=== PATIENT | female | born 1940 | race Caucasian/White ===

== ENCOUNTER 2017-04-08 08:11 | Emergency (ER) | payer MEDICARE, BC ==
[2017-04-08] MEDS ORDERED: Lidocaine 1% with EPINEPHrine 1:100,000 20 ML MDV INJECT ONE (08:20)
[2017-04-08 08:36] VITALS: BP 152/72
[2017-04-08] MEDS ORDERED: Bacitracin Oint 1 GM U/D Packet TOP ONE (09:01)
[2017-04-08] MEDS ORDERED: Diphtheria,Pertussis(Acell),Tetanus Vaccine 0.5 ML SDV IM ONE (09:02)
--- NOTE | 2017-04-08 09:10 | EDM.PDOC ---
ED HPI GENERAL MEDICAL PROBLEM - General Chief Complaint: Laceration Stated Complaint: [phone] CUT HAND Time Seen by Provider: 04/08/17 08:30 Source of Information: Reports: Patient, RN - History of Present Illness INITIAL COMMENTS - FREE TEXT/NARRATIVE: She was washing dishes this morning and was holding a heavy water glass in her right hand while cleaning with her left hand when the glass broke. She sustained a laceration on the left hand the proximal radial side of the index finger. No numbness. No motor or strength problems since the laceration occurred this morning. Last tetanus vaccine uncertain and thinks was less than 10 years ago. She uses her left hand for most activities, but eats using her right hand. Retired. Left Hand Pain Score (Numeric/FACES): 5 - Related Data Allergies Allergy/AdvReac Type Severity Reaction Status Date / Time Penicillins Allergy Cannot Verified 04/08/17 08:36 Remember Home Meds: Home Meds . [Unable to Verify Home Med List] 04/08/17 [History] Past Medical History Gastrointestinal History: Reports: GERD Psychiatric History: Reports: Depression Social & Family History - Tobacco Use Smoking Status *Q: Never Smoker - Recreational Drug Use Recreational Drug Use: No ED ROS GENERAL - Review of Systems Review Of Systems: ROS reveals no pertinent complaints other than HPI. Constitutional: Reports: No Symptoms Skin: Reports: Other (laceration of left hand which happened today. No other problems.) Psychiatric: Reports: No Symptoms (No other comments.) ED EXAM, SKIN/RASH Exam: See Below Eye Exam: Bilateral Eye: Normal Inspection Head: Atraumatic Neck: Normal Inspection Peripheral Pulses: 1+: Radial (L) Extremities: Normal Range of Motion, No Pedal Edema, Normal Capillary Refill, Other (3.5 cm laceration of left hand at the radial side of the index finger proximal MCP joint and at the first dorsal web space.) ED SKIN PROCEDURES - Laceration/Wound Repair Left Hand Lac/wound length in cm: 3.5 Appearance: subcutaneous, linear, clean Distal NVT: neuro & vascular intact, other (laceration near MCP at radial side of the proximal index finger.Curving laceration throught the skin and superficial tissue. Radial digital artery intact and not exposed. 6-7 mm laceration of extensor tendon ramos without any joint capsule exposed. Good extension strength of the index finger.) Anesthetic Type: local Local anesthesia - Lidocaine (Xylocaine): 1% with epi Local anesthetic volume: 3cc Skin prep: chlorhexidine (hibiciens), sterile drape Exploration/Debridement/Repair: wound explored, in a bloodless field, explored to base, no foreign material found Closed with: sutures Suture size: other (5-0 Dermalon ( nylon )) # of sutures: 7 Suture type: nylon, interrupted, simple (only skin closure) Sterile dressing applied: nurse Tetanus status addressed: Yes Complications: No Course - Vital Signs Last Recorded V/S: Last Vital Signs Temp 96.9 F 04/08/17 08:28 Pulse 87 04/08/17 08:28 Resp 18 04/08/17 08:28 BP 152/72 H 04/08/17 08:28 Pulse Ox 98 04/08/17 08:28 - Orders/Labs/Meds Orders: Active Orders 24 hr Category Date Time Status Vaccines to be Administered [RC] PER UNIT ROUTINE Care 04/08/17 09:03 Ordered Diphth,Pertuss(Acell),Tet Vac [Adacel] Med 04/08/17 09:02 Once 0.5 ml IM .ONCE ONE Meds: Medications Discontinued Medications Generic Name Dose Route Start Last Admin Trade Name Freq PRN Reason Stop Dose Admin Bacitracin 1 dose 04/08/17 09:01 Bacitracin Oint 1 Gm TOP 04/08/17 09:02 ONETIME ONE Lidocaine/Epinephrine 20 ml 04/08/17 08:20 Xylocaine 1% With Epinephrine 1:100,000 INJECT 04/08/17 08:21 ONETIME ONE Departure - Departure Time of Disposition: 09:24 Disposition: Home, Self-Care 01 Condition: good Clinical Impression: Laceration of left hand involving tendon Qualifiers: Encounter type: initial encounter Qualified Code(s): S61.412A - Laceration without foreign body of left hand, initial encounter; S66.922A - Laceration of unspecified muscle, fascia and tendon at wrist and hand level, left hand, initial encounter Clinical Impression: (Ruled Out): Hand laceration involving tendon - Discharge Information Instructions: Laceration Care, Adult, [id number] Additional Instructions: Apply daily dressing for 3 days. Keep laceration clean and dry. Elevate hand as needed for pain. Tylenol as needed for pain. See your doctor on April 20 for suture removal. - My Orders Last 24 Hours: My Active Orders 04/08/17 09:02 Diphth,Pertuss(Acell),Tet Vac [Adacel] 0.5 ml IM .ONCE ONE 04/08/17 09:03 Vaccines to be Administered [RC] PER UNIT ROUTINE - Assessment/Plan Last 24 Hours: My Active Orders 04/08/17 09:02 Diphth,Pertuss(Acell),Tet Vac [Adacel] 0.5 ml IM .ONCE ONE 04/08/17 09:03 Vaccines to be Administered [RC] PER UNIT ROUTINE
== END 2017-04-08 09:28 | disposition home or self-care (01) ==
LOC: DL.ED 08:11 → MERGE 08:11 → DL.ED 09:28
DX: S61.411A Laceration without foreign body of right hand, initial encounter (principal); S66.321A Laceration of extensor muscle, fascia and tendon of left index finger at wrist and hand level, initial encounter; Z88.0 Allergy status to penicillin; K21.9 Gastro-esophageal reflux disease without esophagitis; F32.9 Major depressive disorder, single episode, unspecified; Z23 Encounter for immunization; W25.XXXA Contact with sharp glass, initial encounter
CPT/HCPCS: 12002; 90715; 99282; 99283

== ENCOUNTER 2018-07-12 06:24 | Day surgery (SDC) | payer MEDICARE, BC ==
[~2018-07-12 06:24] MED LIST: Dextrose 5%-0.45% NaCl 1,000 ML IV SCH; Midazolam 1 MG/ML 2 ML SDV ONE; Sodium Chloride 0.9% 10 ML Syringe FLUSH PRN; fentaNYL 100 MCG/2 ML SDV ONE
[2018-07-12] MEDS ORDERED: fentaNYL 100 MCG/2 ML SDV IV ONE ×3 (06:25→07:27)
[2018-07-12] MEDS ORDERED: Midazolam 1 MG/ML 2 ML SDV IV ONE ×4 (06:25→07:32)
[2018-07-12 10:06] VITALS: BP 122/55
--- NOTE | 2018-07-12 13:13 | OR ---
DATE: 07/12/2018 PROCEDURES: Total colonoscopy, cold snare polypectomy, and multiple pinch biopsies. INSTRUMENT USED: PCF-H180 AL Olympus video colonoscope. PREMEDICATIONS: Fentanyl 100 mcg intravenous, Versed 3 mg intravenous. Nasal O2 cannula. The procedure was done under pulse oximetry, BP recording, and monitor worker. INDICATION: The patient with unexplained chronic diarrhea. Colonoscopic examination is done for detection of any polypoid lesions and removal. Biopsies to be obtained for microscopic colitis. Endoscopic hemostasis therapy if needed. DESCRIPTION OF PROCEDURE: Initial rectal exam was unremarkable. Rigid anoscopy was normal. The colonoscope was passed with ease. Mild patchy erythema was noted in the rectum. The scope was passed with ease up to the ileocecal area. Photographs were taken of the cecum showing diminutive benign-appearing polyp. NBI views were obtained. Cold snare polypectomy was done. The tissue was retrieved and sent for histopathology. Ileocecal valve showed thin-lipped configuration preventing further advancement of the instrument to visualize terminal ileum. No bleeding was noted from any of the visualized areas at the commencement of the examination. The bowel preparation was found to be adequate. No stricture. No vascular ectasia. No large isolated ulcerations seen. No evidence of diffuse inflammatory bowel disease in the form of friability, contact bleeding, or ulcerations. Probing the proximal sides of folds and flexures, using adequate distention and clearing up the stool material, withdrawal of the scope was made. Photograph was taken of the rectum. Multiple pinch biopsies were taken from the normal-appearing mucosa of the mid transverse colon and mid descending colon and also from the rectum and sent for any histopathologic evidence of microscopic colitis. No bleeding was noted from any of the visualized areas at the completion of examination. IMPRESSION: Diminutive cecal polyp. The patient tolerated the procedure well. [facility] /[id number]
== END 2018-07-12 09:55 | disposition home or self-care (01) ==
LOC: DL.ENDO 06:24
PROVIDERS: ATTEND Internal Medicine Gastroenterology
DX: K52.9 Noninfective gastroenteritis and colitis, unspecified (principal); D12.0 Benign neoplasm of cecum; K62.1 Rectal polyp; F41.1 Generalized anxiety disorder; K21.9 Gastro-esophageal reflux disease without esophagitis; E66.09 Other obesity due to excess calories; Z68.27 Body mass index [BMI] 27.0-27.9, adult; Z88.0 Allergy status to penicillin; Z91.048 Other nonmedicinal substance allergy status
CPT/HCPCS: 88305; J2250; J3010; J7042; J7050

== ENCOUNTER → 2019-02-28 | Outpatient (CLI) | payer MEDICARE, BC | LOC: DL.MRI 10:31 | PROVIDERS: ATTEND Nurse Practitioner | DX: M51.16 Intervertebral disc disorders with radiculopathy, lumbar region (principal); M51.17 Intervertebral disc disorders with radiculopathy, lumbosacral region; M48.061 Spinal stenosis, lumbar region without neurogenic claudication; M46.96 Unspecified inflammatory spondylopathy, lumbar region; M46.97 Unspecified inflammatory spondylopathy, lumbosacral region | CPT/HCPCS: 72148 ==

== ENCOUNTER 2020-05-14 22:14 | Inpatient (IN) | payer MEDICARE, BC ==
--- NOTE | 2020-05-14 22:27 | EDM.PDOC ---
ED HPI GENERAL MEDICAL PROBLEM - General Stated Complaint: fell Time Seen by Provider: 05/14/20 22:30 Source of Information: Reports: Patient History Limitations: Reports: No Limitations - History of Present Illness INITIAL COMMENTS - FREE TEXT/NARRATIVE: Fall at [employer] , left foot, hax hx nerve damage and caught under neath, fell to left side, No loss of consciousness did not strike head. No neck pain. Assisted up. Initially ambulatory with cane, After home elevated and ice, later tried to walk on foot and pain worse and felt unable to bear weight. Pain left wrist with movment, Pain left "butt cheek" Denies hip pain with movement. Left Ankle Pain Score (Numeric/FACES): 7 Left Wrist Pain Score (Numeric/FACES): 7 Buttock Pain Score (Numeric/FACES): 5 - Related Data Allergies Allergy/AdvReac Type Severity Reaction Status Date / Time Penicillins Allergy Cannot Verified 05/14/20 22:40 Remember surgical tape Allergy Other Uncoded 05/14/20 22:40 Home Meds: Home Meds Cholecalciferol (Vitamin D3) [Vitamin D3] 1 tab PO DAILY 06/26/18 [History] Diphenoxylate HCl/Atropine [Diphenoxylate-Atrop 2.5-0.025] 1 each PO QID PRN 05/14/20 [History] atorvaSTATin [Lipitor] 40 mg PO BEDTIME 05/14/20 [History] Aspirin [Aspirin EC] 81 mg PO BEDTIME 05/15/20 [History] FLUoxetine HCl [Prozac] 20 mg PO DAILY 05/15/20 [History] Metoprolol Tartrate 12.5 mg PO BID 05/15/20 [History] Omeprazole 20 mg pe PO DAILY 05/15/20 [History] Ondansetron [Ondansetron Odt] 4 mg PO Q8H PRN 05/15/20 [History] Ticagrelor [Brilinta] 90 mg PO BID 05/15/20 [History] Past Medical History HEENT History: Reports: None Cardiovascular History: Reports: None Respiratory History: Reports: None Gastrointestinal History: Reports: Chronic Diarrhea, GERD, Other (See Below) Other Gastrointestinal History: fatty liver Genitourinary History: Reports: None DIRECTOR TECHNICAL History: Reports: Musculoskeletal History: Reports: Arthritis, Back Pain, Chronic Neurological History: Reports: None Psychiatric History: Reports: Anxiety, Depression Endocrine/Metabolic History: Reports: Obesity/BMI 30+ Hematologic History: Reports: Anemia Immunologic History: Reports: None Oncologic (Cancer) History: Reports: Cervix Dermatologic History: Reports: None - Infectious Disease History Infectious Disease History: Reports: Measles - Past Surgical History Head Surgeries/Procedures: Reports: None HEENT Surgical History: Reports: Cataract Surgery Cardiovascular Surgical History: Reports: None GI Surgical History: Reports: Appendectomy, Cholecystectomy, Colonoscopy, Other (See Below) Other GI Surgeries/Procedures: small bowel GIST surg Female Surgical History: Reports: Hysterectomy Musculoskeletal Surgical History: Reports: None Dermatological Surgical History: Reports: None Social & Family History - Caffeine Use Caffeine Use: Reports: Coffee Caffeine Use Comment: 16 oz daily Review of Systems - Review of Systems Review Of Systems: Comprehensive ROS is negative, except as noted in HPI. ED EXAM, GENERAL - Physical Exam Exam: See Below Exam Limited By: No Limitations General Appearance: Alert, Mild Distress, Thin Eye Exam: Bilateral Eye: EOMI, PERRL Ears: Normal External Exam, Hearing Loss (mild) Nose: Normal Inspection Throat/Mouth: Normal Inspection Head: Atraumatic, Normocephalic Neck: Normal Inspection Respiratory/Chest: No Respiratory Distress, Lungs Clear Cardiovascular: Normal Peripheral Pulses, Regular Rate, Rhythm GI/Abdominal: Normal Bowel Sounds, Soft Back Exam: No: CVA Tenderness (L), CVA Tenderness (R), Decreased Range of Motion Extremities: Arm Pain (wrist), Leg Pain (left ankle), Limited Range of Motion (left foot, ankle), Other (mild swelling bruisig left wrist, mild lateral swelling left foot and ankel. ) Neurological: Alert, Oriented, Normal Cognition Skin Exam: Warm, Dry, Intact, Ecchymosis (left foot, ankle and wrist) Course - Vital Signs Last Recorded V/S: Last Vital Signs Temp 98.4 F 05/15/20 20:00 Pulse 65 05/15/20 20:44 Resp 18 05/15/20 20:00 BP 125/52 L 05/15/20 20:44 Pulse Ox 96 05/15/20 20:00 - Orders/Labs/Meds Orders: Active Orders 24 hr Category Date Time Status Regular Diet [DIET] Diet 05/15/20 Breakfast Active Aspirin [Halfprin] Med 05/15/20 21:00 Active 81 mg PO BEDTIME Heparin Sodium Med 05/15/20 06:00 Active 5,000 units SUBCUT Q8HR Ticagrelor [Brilinta] Med 05/15/20 12:00 Active 90 mg PO BID Medication Orders Acetaminophen (Tylenol) 650 mg PO Q4H PRN PRN Reason: Pain (Mild 1-3)/fever Aspirin (Halfprin) 81 mg PO BEDTIME [facility] Last Admin: 05/15/20 20:42 Dose: 81 mg Documented by: [place] Heparin Sodium (Porcine) (Heparin Sodium) 5,000 units SUBCUT Q8HR [facility] Last Admin: 05/15/20 22:08 Dose: 5,000 units Documented by: Admin: 05/15/20 14:53 Dose: Not Given Documented by: Admin: 05/15/20 05:45 Dose: 5,000 units Documented by: [place] Metoprolol Tartrate (Lopressor) 12.5 mg PO BID [facility] Last Admin: 05/15/20 20:44 Dose: 12.5 mg Documented by: Admin: 05/15/20 13:00 Dose: Not Given Documented by: TED Morphine Sulfate (Morphine) 2 mg IVPUSH Q2H PRN PRN Reason: Pain (severe 7-10) (Ticagrelor [ Brilinta] 90 Mg)*Pt Own Med* 90 mg PO BID [facility] Last Admin: 05/15/20 20:43 Dose: 90 mg Documented by: Admin: 05/15/20 13:30 Dose: 90 mg Documented by: TED Atorvastatin 40 Mg (Tab *Pt Own Med*) 0 each PO BEDTIME [facility] Last Admin: 05/15/20 20:43 Dose: 1 each Documented by: [place] Fluoxetine 20 Mg Cap (*Pt Own Med*) 0 each PO DAILY [facility] Last Admin: 05/15/20 13:00 Dose: Not Given Documented by: TED Ondansetron HCl (Zofran) 4 mg IVPUSH Q6H PRN PRN Reason: Nausea/Vomiting Oxycodone/Acetaminophen (Percocet 325-5 Mg) 1 tab PO Q4H PRN PRN Reason: Pain (moderate 4-6) Last Admin: 05/15/20 22:11 Dose: 1 tab Documented by: Admin: 05/15/20 02:22 Dose: 1 tab Documented by: [id number] Labs: Laboratory Tests 05/14/20 05/14/20 05/14/20 Range/Units 06:05 22:38 22:38 WBC 7.0 (5.0-10.0) 10^3/uL RBC 3.99 L (4.2-5.4) 10^6/uL Hgb 12.2 (12.0-16.0) g/dL Hct 36.8 L (37.0-47.0) % MCV 92.2 (80-100) fL MCH 30.6 (27.0-34.0) pg MCHC 33.2 (33.0-35.0) g/dL Plt Count 174 (150-450) 10^3/uL Neut % (Auto) 48.9 (42.2-75.2) % Lymph % (Auto) 37.3 (20.5-50.1) % [place] % (Auto) 10.2 H (2-8) % Eos % (Auto) 3.3 H (1.0-3.0) % Baso % (Auto) 0.3 (0.0-1.0) % Sodium 144 (136-145) mmol/L Potassium 3.4 L (3.5-5.1) mmol/L Chloride 107 (98-107) mmol/L Carbon Dioxide 28 (21-32) mmol/L Anion Gap 12.4 (7-13) mEq/L BUN 14 (7-18) mg/dL Creatinine 1.15 H (0.55-1.02) mg/dL Est Cr Clr Drug Dosing 28.03 mL/min Estimated GFR (MDRD) 45 BUN/Creatinine Ratio 12.2 (No establ ref range) Glucose 102 H (74-99) mg/dL Calcium 8.6 (8.5-10.1) mg/dL Total Bilirubin 0.6 (0.2-1.0) mg/dL AST 23 (15-37) U/L ALT 31 (14-59) U/L Alkaline Phosphatase 82 (46-116) U/L Total Protein 6.5 (6.4-8.2) g/dL Albumin 3.5 (3.4-5.0) g/dL Globulin 3.0 Albumin/Globulin Ratio 1.2 Urine Color Dark yellow (YELLOW) Urine Appearance Clear (CLEAR) Urine pH 5.5 (5.0-9.0) Ur Specific [place] 1.025 (1.005-1.030) Urine Protein Negative (NEGATIVE) Urine Glucose (UA) Negative (NEGATIVE) Urine Ketones Negative (NEGATIVE) Urine Occult Blood Negative (NEGATIVE) Urine Nitrite Negative (NEGATIVE) Urine Bilirubin Negative (NEGATIVE) Urine Urobilinogen 0.2 (0.2-1.0) mg/dL Ur Leukocyte Esterase Negative (NEGATIVE) Ethyl Alcohol < 3 (0) mg/dL Meds: Medications Generic Name Dose Route Start Last Admin Trade Name Freq PRN Reason Stop Dose Admin Acetaminophen 650 mg 05/15/20 01:51 Tylenol PO Q4H PRN Pain (Mild 1-3)/fever Aspirin 81 mg 05/15/20 21:00 05/15/20 20:42 Halfprin PO 81 mg BEDTIME ELYSSA Administration Heparin Sodium (Porcine) 5,000 units 05/15/20 06:00 05/15/20 22:08 Heparin Sodium SUBCUT 5,000 units Q8HR ELYSSA Administration Metoprolol Tartrate 12.5 mg 05/15/20 12:00 05/15/20 20:44 Lopressor PO 12.5 mg BID ELYSSA Administration Morphine Sulfate 2 mg 05/15/20 01:51 Morphine IVPUSH Q2H PRN Pain (severe 7-10) (Ticagrelor [ 90 mg 05/15/20 12:00 05/15/20 20:43 Brilinta] 90 Mg)*Pt PO 90 mg Own Med* BID ELYSSA Administration Atorvastatin 40 Mg 0 each 05/15/20 21:00 05/15/20 20:43 Tab *Pt Own Med* PO 1 each BEDTIME ELYSSA Administration Fluoxetine 20 Mg Cap 0 each 05/15/20 12:15 05/15/20 13:00 *Pt Own Med* PO Not Given DAILY ELYSSA Ondansetron HCl 4 mg 05/15/20 01:51 Zofran IVPUSH Q6H PRN Nausea/Vomiting Oxycodone/Acetaminophen 1 tab 05/15/20 01:51 05/15/20 22:11 Percocet 325-5 Mg PO 1 tab Q4H PRN Administration Pain (moderate 4-6) Discontinued Medications Generic Name Dose Route Start Last Admin Trade Name Freq PRN Reason Stop Dose Admin Atorvastatin Calcium 40 mg 05/15/20 21:00 Lipitor PO BEDTIME ELYSSA Fluoxetine HCl 20 mg 05/15/20 09:00 05/15/20 09:35 Prozac PO 20 mg DAILY ELYSSA Administration Metoprolol Tartrate 12.5 mg 05/15/20 09:00 05/15/20 09:35 Lopressor PO 12.5 mg BID ELYSSA Administration - Re-Assessments/Exams Free Text/Narrative Re-Assessment/Exam: 05/15/20 00:30 Rings removed left hand, Patient placed her rings in wallet. TC Dr Baez Admit observation, Patient will need assistive type walker as unable to bear weight on wrist and limited weight bearing on left lower extremity. Will need to follow with ortho in future for metatarsal fracture.. Departure - Departure Time of Disposition: 00:30 Disposition: Refer to Observation Condition: Fair Clinical Impression: Fall Qualifiers: Encounter type: initial encounter Qualified Code(s): W19.XXXA - Unspecified fall, initial encounter Fracture of 5th metatarsal Qualifiers: Encounter type: initial encounter Fracture type: closed Fracture alignment: displaced Laterality: left Qualified Code(s): S92.352A - Displaced fracture of fifth metatarsal bone, left foot, initial encounter for closed fracture Wrist sprain Qualifiers: Encounter type: initial encounter Laterality: left Qualified Code(s): S63.502A - Unspecified sprain of left wrist, initial encounter - Discharge Information *PRESCRIPTION DRUG MONITORING PROGRAM REVIEWED*: No *COPY OF PRESCRIPTION DRUG MONITORING REPORT IN PATIENT RUSSELL: No
[2020-05-14 23:02] LABS: ANION GAP 12.4 mEq/L (7-13); CHLORIDE,CL 107 mmol/L (98-107); SODIUM,NA 144 mmol/L (136-145)
--- NOTE | 2020-05-14 23:14 | CR ---
PROCEDURE INFORMATION: Exam: XR Left Wrist Exam date and time: 05/14/2020 10:58 PM Age: 80 years old Clinical indication: Other: Fall; Additional info: Fall ground height twisted ankle land hand hip TECHNIQUE: Imaging protocol: XR Left wrist. Views: 3 or more views. COMPARISON: No relevant prior studies available. FINDINGS: Bones/joints: [id number] DJD is present involving the interphalangeal joints of all digits. There is [id number] DJD at the 1st carpometacarpal joint. Possible old fracture base/radial aspect of the 1st metacarpal. Soft tissues: Normal. Other findings: No true lateral view submitted. IMPRESSION: 1. No acute disease identified. 2. Multifocal DJD.
--- NOTE | 2020-05-14 23:16 | CR ---
PROCEDURE INFORMATION: Exam: XR Left Ankle Exam date and time: 05/14/2020 11:02 PM Age: 80 years old Clinical indication: Other: Fall--lateral foot pain also; Additional info: Fall ground height twisted ankle land hand hip TECHNIQUE: Imaging protocol: XR Left ankle. Views: 3 or more views. COMPARISON: No relevant prior studies available. FINDINGS: Bones/joints: Osteopenia. There is a nondisplaced fracture involving the proximal/lateral aspect of the 5th metatarsal. The fracture extends through the lateral cortical margin. No acute dislocation. Soft tissues: Soft tissue swelling. IMPRESSION: Fracture proximal aspect of the 5th metatarsal. Soft tissue swelling.
--- NOTE | 2020-05-14 23:26 | CT ---
PROCEDURE INFORMATION: Exam: CT Pelvis Without Contrast; Skeletal Exam date and time: 05/14/2020 10:53 PM Age: 80 years old Clinical indication: Other: Fall; Additional info: Fall ground height twisted ankle land hand hip TECHNIQUE: Imaging protocol: Computed tomography images of the pelvis without contrast. Exam focused on the skeletal structures. Radiation optimization: All CT scans at this facility use at least one of these dose optimization techniques: automated exposure control; mA and/or kV adjustment per patient size (includes targeted exams where dose is matched to clinical indication); or iterative reconstruction. COMPARISON: No relevant prior studies available. FINDINGS: Stomach and bowel: No bowel obstruction. Appendix: The appendix is not identified. Bladder: There is a small amount of intraluminal bladder gas. Reproductive: Absent uterus. Intraperitoneal space: No free fluid, free air. Vasculature: The vasculature demonstrates diffuse mild atherosclerotic calcification. Bones/joints: Osteopenia. There are degenerative changes involving the spine, SI joints, symphysis pubis. No acute fracture, dislocation. Soft tissues: Moderate stranding, consistent with edema/contusion, is present in the superficial and deep subcutaneous fat of the left buttock region. Calcified injection granulomas are present within the right buttock subcutaneous fat. IMPRESSION: 1. Small amount of intraluminal bladder gas, that could be due to instrumentation. Infection from a gas producing organism/cystitis is less likely, not excluded. 2. Left buttock soft tissue injury, without evidence of an acute osseous abnormality.
--- NOTE | 2020-05-14 23:26 | CT ---
PROCEDURE INFORMATION: Exam: CT Lumbar Spine Without Contrast Exam date and time: 05/14/2020 10:53 PM Age: 80 years old Clinical indication: Other: Fall, ground height TECHNIQUE: Imaging protocol: Computed tomography images of the lumbar spine without contrast. Radiation optimization: All CT scans at this facility use at least one of these dose optimization techniques: automated exposure control; mA and/or kV adjustment per patient size (includes targeted exams where dose is matched to clinical indication); or iterative reconstruction. COMPARISON: MR Lumbar Spine Comp wo Cont 02/28/2019 10:44 AM FINDINGS: Vertebrae: There are multiple levels of moderate to severe osteoarthritis. This is manifested by degenerative disc and joint disease, spondylosis. T12-L1: There is osteoarthritis present at T12-L1. L1-L2: No significant disc protrusion. No severe spinal canal stenosis. No significant neural foraminal narrowing. L2-L3: No significant disc protrusion. No spinal canal stenosis. No neural foraminal narrowing. L3-L4: No significant disc protrusion. No severe spinal canal stenosis. No significant neural foraminal narrowing. L4-L5: No significant disc protrusion. No severe spinal canal stenosis. No significant neural foraminal narrowing. L5-S1: Moderate stenosis of the left neural foramen. No 4 5: Mild posterior right foraminal to left foraminal disc protrusion. Moderate spinal canal stenosis. Minimal grade 1 anterior spondylolisthesis of L4 on L5. Hypertrophic ligamentum flavum. Sacrum/coccyx: There are vacuum changes involving the SI joints, consistent with degenerative disease. Other bones/joints: Osteopenia. No acute fracture, dislocation. Gallbladder and bile ducts: Prior cholecystectomy. Vasculature: The vasculature demonstrates diffuse mild atherosclerotic calcification. Soft tissues: No paraspinous hematoma. IMPRESSION: 1. Osteoarthritis. 2. No acute osseous abnormality. 3. Mild posterior disc protrusion, moderate spinal canal stenosis at L4-L5. Minimal grade 1 anterior spondylolisthesis of L4 on L5.
[2020-05-15] MEDS ORDERED: Acetaminophen 325 MG Tab PO PRN (01:51)
[2020-05-15] MEDS ORDERED: Ondansetron 4 MG/2 ML SDV IVPUSH PRN (01:51)
[2020-05-15] MEDS ORDERED: Morphine 2 MG/ML Syringe IVPUSH PRN (01:51)
[2020-05-15] MEDS: Acetaminophen/oxyCODONE 325-5 MG Tab PO PRN ×2 (02:22→22:11)
[2020-05-15] MEDS: Heparin Sodium 5,000 Units/ML Vial SUBCUT SCH ×3 (05:45→22:08)
[2020-05-15] MEDS ORDERED: FLUoxetine 10 MG Cap PO SCH (09:00)
[2020-05-15] MEDS ORDERED: Metoprolol Tartrate 25 MG Tab PO SCH (09:00)
--- NOTE | 2020-05-15 10:23 | PCM.HP ---
H&P History of Present Illness - General Date of Service: 05/15/20 Admit Problem/Dx: Admission Diagnosis/Problem Admission Diagnosis/Problem Fracture of base of fifth metatarsal bone of right foot Source of Information: Patient - History of Present Illness Initial Comments - Free Text/Narative: Is an 80 year old female with medical history of gastric surgery reflux disease, osteoarthritis, depression, hypertension, and dyslipidemia. 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 The patient was ambulating at home where she lives alone, lost her balance and fell. Began to complain of pain of the left foot. Intensity of pain has been about 8 on a scale of 0-10. It is worse when she tries to walk with it. Analgesic does help some. Patient did not strike her head with the fall. Denies having chest pain or shortness of breath. No abdominal pain change in bowel or urinary habits. Left Ankle Pain Score (Numeric/FACES): 8 Left Wrist Pain Score (Numeric/FACES): 7 Buttock Pain Score (Numeric/FACES): 5 - Related Data Allergies/Adverse Reactions: Allergies Allergy/AdvReac Type Severity Reaction Status Date / Time Penicillins Allergy Cannot Verified 05/14/20 22:40 Remember surgical tape Allergy Other Uncoded 05/14/20 22:40 Home Medications: Home Meds Cholecalciferol (Vitamin D3) [Vitamin D3] 1 tab PO DAILY 06/26/18 [History] Diphenoxylate HCl/Atropine [Diphenoxylate-Atrop 2.5-0.025] 1 each PO QID PRN 05/14/20 [History] atorvaSTATin [Lipitor] 40 mg PO BEDTIME 05/14/20 [History] Aspirin [Aspirin EC] 81 mg PO BEDTIME 05/15/20 [History] FLUoxetine HCl [Prozac] 20 mg PO DAILY 05/15/20 [History] Metoprolol Tartrate 12.5 mg PO BID 05/15/20 [History] Ticagrelor [Brilinta] 90 mg PO BID 05/15/20 [History] Past Medical History HEENT History: Reports: Cataract, Impaired Vision, Other (See Below) Other HEENT History: allergies Cardiovascular History: Reports: Hypertension, Stents Respiratory History: Reports: None Gastrointestinal History: Reports: Chronic Diarrhea, GERD, Other (See Below) Other Gastrointestinal History: fatty liver Genitourinary History: Reports: None 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: Musculoskeletal History: Reports: Arthritis, Back Pain, Chronic Neurological History: Reports: Neuropathy, Peripheral Psychiatric History: Reports: Anxiety, Depression Endocrine/Metabolic History: Reports: Obesity/BMI 30+ Hematologic History: Reports: Anemia Immunologic History: Reports: None Oncologic (Cancer) History: Reports: Cervix Dermatologic History: Reports: None - Infectious Disease History Infectious Disease History: Reports: Measles - Past Surgical History Head Surgeries/Procedures: Reports: None HEENT Surgical History: Reports: Cataract Surgery Cardiovascular Surgical History: Reports: Other (See Below) Other Cardiovascular Surgeries/Procedures: Cardiac stent GI Surgical History: Reports: Appendectomy, Cholecystectomy, Colonoscopy, Other (See Below) Other GI Surgeries/Procedures: small bowel GIST surg Female Surgical History: Reports: Hysterectomy, Salpingo-Oophorectomy Neurological Surgical History: Reports: None Musculoskeletal Surgical History: Reports: None Oncologic Surgical History: Reports: None Dermatological Surgical History: Reports: None Social & Family History - Family History Family Medical History: Noncontributory - Tobacco Use Smoking Status *Q: Never Smoker - Caffeine Use Caffeine Use: Reports: Coffee Caffeine Use Comment: 16 oz daily - Alcohol Use Date of Last Drink: 05/14/20 - Recreational Drug Use Recreational Drug Use: No H&P Review of Systems - Review of Systems: Review Of Systems: See Below General: Reports: Weakness HEENT: Reports: No Symptoms Pulmonary: Reports: No Symptoms Cardiovascular: Reports: No Symptoms Gastrointestinal: Reports: No Symptoms Genitourinary: Reports: No Symptoms Skin: Reports: Other (Left foot pain) Psychiatric: Reports: No Symptoms Exam - Exam Exam: See Below - Vital Signs Vital Signs: Last Vital Signs Temp 36.4 C 05/15/20 08:00 Pulse 73 05/15/20 09:35 Resp 16 05/15/20 08:00 BP 101/63 05/15/20 09:35 Pulse Ox 100 05/15/20 08:00 Weight: 60.237 kg - Exam General: Alert, Oriented, Cooperative Neck: Supple, Trachea Midline Lungs: Clear to Auscultation, Normal Respiratory Effort Cardiovascular: Regular Rate, Regular Rhythm GI/Abdominal Exam: Normal Bowel Sounds, Soft, Non-Tender, No Organomegaly, No Distention, No Abnormal Bruit, No Mass, Pelvis Stable Extremities: Other (Tenderness left foot over the lateral aspect) - Patient Data Lab Results Last 24 hrs: Laboratory Results - last 24 hr 05/14/20 05/14/20 05/14/20 Range/Units 06:05 22:38 22:38 WBC 7.0 (5.0-10.0) 10^3/uL RBC 3.99 L (4.2-5.4) 10^6/uL Hgb 12.2 (12.0-16.0) g/dL Hct 36.8 L (37.0-47.0) % MCV 92.2 (80-100) fL MCH 30.6 (27.0-34.0) pg MCHC 33.2 (33.0-35.0) g/dL Plt Count 174 (150-450) 10^3/uL Neut % (Auto) 48.9 (42.2-75.2) % Lymph % (Auto) 37.3 (20.5-50.1) % [place] % (Auto) 10.2 H (2-8) % Eos % (Auto) 3.3 H (1.0-3.0) % Baso % (Auto) 0.3 (0.0-1.0) % Sodium 144 (136-145) mmol/L Potassium 3.4 L (3.5-5.1) mmol/L Chloride 107 (98-107) mmol/L Carbon Dioxide 28 (21-32) mmol/L Anion Gap 12.4 (7-13) mEq/L BUN 14 (7-18) mg/dL Creatinine 1.15 H (0.55-1.02) mg/dL Est Cr Clr Drug Dosing 28.03 mL/min Estimated GFR (MDRD) 45 BUN/Creatinine Ratio 12.2 (No establ ref range) Glucose 102 H (74-99) mg/dL Calcium 8.6 (8.5-10.1) mg/dL Total Bilirubin 0.6 (0.2-1.0) mg/dL AST 23 (15-37) U/L ALT 31 (14-59) U/L Alkaline Phosphatase 82 (46-116) U/L Total Protein 6.5 (6.4-8.2) g/dL Albumin 3.5 (3.4-5.0) g/dL Globulin 3.0 Albumin/Globulin Ratio 1.2 Urine Color Dark yellow (YELLOW) Urine Appearance Clear (CLEAR) Urine pH 5.5 (5.0-9.0) Ur Specific [place] 1.025 (1.005-1.030) Urine Protein Negative (NEGATIVE) Urine Glucose (UA) Negative (NEGATIVE) Urine Ketones Negative (NEGATIVE) Urine Occult Blood Negative (NEGATIVE) Urine Nitrite Negative (NEGATIVE) Urine Bilirubin Negative (NEGATIVE) Urine Urobilinogen 0.2 (0.2-1.0) mg/dL Ur Leukocyte Esterase Negative (NEGATIVE) Ethyl Alcohol < 3 (0) mg/dL Result Diagrams: 05/14/20 22:38 05/14/20 22:38 Problem List Initiated/Reviewed/Updated: Yes Orders Last 24hrs: Active Orders 24 hr Category Date Time Status Admission Diagnosis [ADT] Stat ADT 05/15/20 00:33 Ordered Admission Status [Patient Status] [ADT] Routine ADT 05/15/20 00:33 Active Patient Status [ADT] Routine ADT 05/15/20 01:51 Active Intake and Output [RC] QSHIFT Care 05/15/20 01:53 Active Oxygen Therapy [RC] .PRN Care 05/15/20 01:51 Active Up ad Tori [RC] ASDIRECTED Care 05/15/20 01:51 Active VTE/DVT Education [RC] PER UNIT ROUTINE Care 05/15/20 01:51 Active Vital Signs [RC] 00,04,08,12,16,20 Care 05/15/20 01:51 Active Regular Diet [DIET] Diet 05/15/20 Breakfast Active Acetaminophen [Tylenol] Med 05/15/20 01:51 Active 650 mg PO Q4H PRN Acetaminophen/oxyCODONE [Percocet 325-5 MG] Med 05/15/20 01:51 Active 1 tab PO Q4H PRN Aspirin [Halfprin] Med 05/15/20 21:00 Active 81 mg PO BEDTIME FLUoxetine [PROzac] Med 05/15/20 09:00 Active 20 mg PO DAILY Heparin Sodium Med 05/15/20 06:00 Active 5,000 units SUBCUT Q8HR Metoprolol Tartrate [Lopressor] Med 05/15/20 09:00 Active 12.5 mg PO BID Morphine Sulfate [Morphine] Med 05/15/20 01:51 Active 2 mg IVPUSH Q2H PRN Ondansetron [Zofran] Med 05/15/20 01:51 Active 4 mg IVPUSH Q6H PRN Ticagrelor [Brilinta] Med 05/15/20 09:00 Pending 90 mg PO BID atorvaSTATin [Lipitor] Med 05/15/20 21:00 Active 40 mg PO BEDTIME Resuscitation Status Routine Resus Stat 05/15/20 01:51 Ordered Medication Orders Acetaminophen (Tylenol) 650 mg PO Q4H PRN PRN Reason: Pain (Mild 1-3)/fever Aspirin (Halfprin) 81 mg PO BEDTIME [facility] Atorvastatin Calcium (Lipitor) 40 mg PO BEDTIME ELYSSA Fluoxetine HCl (Prozac) 20 mg PO DAILY [facility] Last Admin: 05/15/20 09:35 Dose: 20 mg Documented by: TED Heparin Sodium (Porcine) (Heparin Sodium) 5,000 units SUBCUT Q8HR [facility] Last Admin: 05/15/20 05:45 Dose: 5,000 units Documented by: SOCORRO Metoprolol Tartrate (Lopressor) 12.5 mg PO BID [facility] Last Admin: 05/15/20 09:35 Dose: 12.5 mg Documented by: TED Morphine Sulfate (Morphine) 2 mg IVPUSH Q2H PRN PRN Reason: Pain (severe 7-10) Non-Formulary Medication (Ticagrelor [Brilinta]) 90 mg PO BID [facility] Ondansetron HCl (Zofran) 4 mg IVPUSH Q6H PRN PRN Reason: Nausea/Vomiting Oxycodone/Acetaminophen (Percocet 325-5 Mg) 1 tab PO Q4H PRN PRN Reason: Pain (moderate 4-6) Last Admin: 05/15/20 02:22 Dose: 1 tab Documented by: [id number] Assessment/Plan Comment:: #.Left proximal 5 th metatarsal fracture Secondary to fall. X-ray confirms fracture #. Hypokalemia Serum potassium is down to 3.4 #. Gastroesophageal reflux disease Proton pump inhibitors #. Left wrist pain Evidence of fracture on x-ray Analgesics #. Depression Restart antidepressant Consult physical therapy Consult occupational therapy Start patient on Percocet for pain control Intravenous morphine was started. The patient does not like it. I will proceed to discontinue that
[2020-05-15] MEDS: FLUOXETINE 20 MG PO SCH (13:00)
[2020-05-15] MEDS: Metoprolol Tartrate 25 MG Tab*PT OWN MED PO SCH ×2 (13:00→20:44)
[2020-05-15] MEDS: TICAGRELOR 90 MG PO SCH ×2 (13:30→20:43)
[2020-05-15] MEDS: Aspirin 81 MG Tab.EC PO SCH (20:42)
[2020-05-15] MEDS: ATORVASTATIN 40 MG TAB *PT OWN MED PO SCH (20:43)
[2020-05-15] MEDS ORDERED: atorvaSTATin 20 MG Tab PO SCH (21:00)
[2020-05-16] MEDS: Heparin Sodium 5,000 Units/ML Vial SUBCUT SCH ×3 (05:53→22:28)
[2020-05-16] MEDS ORDERED: Barium Sulfate w/v 2.1% Oral Susp 450 ML Bottle ONE (09:30)
--- NOTE | 2020-05-16 09:37 | PCM.PN ---
- General Info Date of Service: 05/16/20 Subjective Update: The patient has no new complaint today. Still has some pain of the left foot but intensity has improved. Has been able to walk some - Review of Systems General: Reports: No Symptoms Pulmonary: Reports: No Symptoms Cardiovascular: Reports: No Symptoms Gastrointestinal: Reports: No Symptoms Skin: Reports: No Symptoms - Patient Data Vitals - Most Recent: Last Vital Signs Temp 36.9 C 05/15/20 20:00 Pulse 65 05/15/20 20:44 Resp 18 05/15/20 20:00 BP 125/52 L 05/15/20 20:44 Pulse Ox 96 05/15/20 20:00 Weight - Most Recent: 60.237 kg I&O - Last 24 Hours: Intake & Output 05/15/20 05/16/20 05/16/20 22:59 06:59 14:59 Intake Total 360 Balance 360 Med Orders - Current: Current Medications Acetaminophen (Tylenol) 650 mg PO Q4H PRN PRN Reason: Pain (Mild 1-3)/fever Aspirin (Halfprin) 81 mg PO BEDTIME [facility] Last Admin: 05/15/20 20:42 Dose: 81 mg Documented by: Heparin Sodium (Porcine) (Heparin Sodium) 5,000 units SUBCUT Q8HR [facility] Last Admin: 05/16/20 05:53 Dose: 5,000 units Documented by: Metoprolol Tartrate (Lopressor) 12.5 mg PO BID [facility] Last Admin: 05/15/20 20:44 Dose: 12.5 mg Documented by: Morphine Sulfate (Morphine) 2 mg IVPUSH Q2H PRN PRN Reason: Pain (severe 7-10) (Ticagrelor [ Brilinta] 90 Mg)*Pt Own Med* 90 mg PO BID [facility] Last Admin: 05/15/20 20:43 Dose: 90 mg Documented by: Atorvastatin 40 Mg (Tab *Pt Own Med*) 0 each PO BEDTIME [facility] Last Admin: 05/15/20 20:43 Dose: 1 each Documented by: Fluoxetine 20 Mg Cap (*Pt Own Med*) 0 each PO DAILY [facility] Last Admin: 05/15/20 13:00 Dose: Not Given Documented by: Ondansetron HCl (Zofran) 4 mg IVPUSH Q6H PRN PRN Reason: Nausea/Vomiting Oxycodone/Acetaminophen (Percocet 325-5 Mg) 1 tab PO Q4H PRN PRN Reason: Pain (moderate 4-6) Last Admin: 05/15/20 22:11 Dose: 1 tab Documented by: Discontinued Medications Atorvastatin Calcium (Lipitor) 40 mg PO BEDTIME [facility] Barium Sulfate (Readi-Cat 2) Confirm Administered Dose 450 ml .ROUTE .STK-MED ONE Stop: 05/16/20 09:31 Fluoxetine HCl (Prozac) 20 mg PO DAILY [facility] Last Admin: 05/15/20 09:35 Dose: 20 mg Documented by: Metoprolol Tartrate (Lopressor) 12.5 mg PO BID [facility] Last Admin: 05/15/20 09:35 Dose: 12.5 mg Documented by: - Exam General: Alert, Oriented, Cooperative Neck: Supple Lungs: Clear to Auscultation, Normal Respiratory Effort Cardiovascular: Regular Rate, Regular Rhythm GI/Abdominal Exam: Normal Bowel Sounds, Soft, Non-Tender, No Organomegaly, No Distention, No Abnormal Bruit, No Mass, Pelvis Stable Extremities: Other (Left foot is immobilized in a Cam boot) Sepsis Event Note - Evaluation Sepsis Screening Result: No Definite Risk - Focused Exam Date Exam was Performed: 05/16/20 Time Exam was Performed: 09:33 - Problem List Review Problem List Initiated/Reviewed/Updated: Yes - My Orders Last 24 Hours: My Active Orders 05/15/20 10:27 Admission Status [Patient Status] [ADT] Routine 05/15/20 12:00 Metoprolol Tartrate [Lopressor] 12.5 mg PO BID Ticagrelor [Brilinta] 90 mg PO BID 05/15/20 12:15 Non-Formulary Medication [NF Drug] 0 each PO DAILY 05/15/20 21:00 Aspirin [Halfprin] 81 mg PO BEDTIME Non-Formulary Medication [NF Drug] 0 each PO BEDTIME 05/17/20 05:11 BASIC METABOLIC PANEL,BMP [CHEM] AM - Plan Plan:: #.Left proximal 5 th metatarsal fracture Secondary to fall. X-ray confirms fracture #. Hypokalemia Serum potassium was down to 3.4 Replace electrolyte deficit #. Gastroesophageal reflux disease Proton pump inhibitors #. Left wrist pain Evidence of fracture on x-ray Analgesics #. Depression Antidepressant
[2020-05-16] MEDS: FLUOXETINE 20 MG PO SCH (10:57)
[2020-05-16] MEDS: Metoprolol Tartrate 25 MG Tab*PT OWN MED PO SCH ×2 (10:58→20:14)
[2020-05-16] MEDS: Polyethylene Glycol 3350 Powder 17 GM Packet PO SCH (11:03)
[2020-05-16] MEDS: TICAGRELOR 90 MG PO SCH ×2 (12:58→20:16)
[2020-05-16] MEDS: Aspirin 81 MG Tab.EC PO SCH (20:15)
[2020-05-16] MEDS: ATORVASTATIN 40 MG TAB *PT OWN MED PO SCH (20:15)
[2020-05-16] MEDS: Acetaminophen/oxyCODONE 325-5 MG Tab PO PRN (20:16)
[2020-05-17] MEDS: Heparin Sodium 5,000 Units/ML Vial SUBCUT SCH (06:02)
[2020-05-17 06:59] LABS: ANION GAP 11.8 mEq/L (7-13); CHLORIDE,CL 107 mmol/L (98-107); SODIUM,NA 143 mmol/L (136-145)
[2020-05-17 07:29] VITALS: BP 123/60
[2020-05-17] MEDS: FLUOXETINE 20 MG PO SCH (09:01)
[2020-05-17] MEDS: Metoprolol Tartrate 25 MG Tab*PT OWN MED PO SCH (09:02)
[2020-05-17] MEDS: Polyethylene Glycol 3350 Powder 17 GM Packet PO SCH (09:03)
[2020-05-17] MEDS: TICAGRELOR 90 MG PO SCH (09:04)
[2020-05-17 09:07] VITALS: PULSE 62
--- NOTE | 2020-05-17 09:38 | PCM.DCSUM1 ---
Discharge Summary - Hospital Course Free Text/Narrative:: s an 80 year old female with medical history of gastric surgery reflux disease, osteoarthritis, depression, hypertension, and dyslipidemia. 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 The patient was ambulating at home where she lives alone, lost her balance and fell.She was found to have left proximal 5th metatarsal fracture. #.Left proximal 5 th metatarsal fracture Secondary to fall. X-ray confirms fracture #. Hypokalemia Serum potassium was down to 3.4 Replaced electrolyte deficit #. Gastroesophageal reflux disease Proton pump inhibitors #. Left wrist pain Evidence of fracture on x-ray Analgesics #. Depression Antidepressant Diagnosis: Stroke: No - Discharge Data Discharge Date: 05/17/20 Discharge Disposition: Home, Self-Care 01 Condition: Fair - Referral to Home Health Primary Care Physician: PCP None - Patient Summary/Data Consults: Consultations 05/17/20 09:08 PT Evaluation and Treatment [CONS] Routine 05/17/20 09:09 OT Evaluation and Treatment [CONS] Routine - Patient Instructions Diet: Usual Diet as Tolerated Activity: As Tolerated Driving: May Drive Today Other/Special Instructions: f/up with PMD in one week - Discharge Plan *PRESCRIPTION DRUG MONITORING PROGRAM REVIEWED*: No *COPY OF PRESCRIPTION DRUG MONITORING REPORT IN PATIENT RUSSELL: No Home Medications: Home Meds Cholecalciferol (Vitamin D3) [Vitamin D3] 1 tab PO DAILY 06/26/18 [History] Diphenoxylate HCl/Atropine [Diphenoxylate-Atrop 2.5-0.025] 1 each PO QID PRN 05/14/20 [History] atorvaSTATin [Lipitor] 40 mg PO BEDTIME 05/14/20 [History] Aspirin [Aspirin EC] 81 mg PO BEDTIME 05/15/20 [History] FLUoxetine HCl [Prozac] 20 mg PO DAILY 05/15/20 [History] Metoprolol Tartrate 12.5 mg PO BID 05/15/20 [History] Omeprazole 20 mg pe PO DAILY 05/15/20 [History] Ondansetron [Ondansetron Odt] 4 mg PO Q8H PRN 05/15/20 [History] Ticagrelor [Brilinta] 90 mg PO BID 05/15/20 [History] Referrals: Paloma Benson NP [Nurse Practitioner] - - Discharge Summary/Plan Comment DC Time >30 min.: No - General Info Date of Service: 05/17/20 - Review of Systems General: Reports: Fatigue, Malaise HEENT: Reports: No Symptoms Pulmonary: Reports: No Symptoms Cardiovascular: Reports: No Symptoms Gastrointestinal: Reports: No Symptoms Musculoskeletal: Reports: No Symptoms Psychiatric: Reports: No Symptoms - Patient Data Vitals - Most Recent: Last Vital Signs Temp 36.6 C 05/17/20 07:27 Pulse 62 05/17/20 09:02 Resp 17 05/17/20 07:27 BP 123/60 05/17/20 09:02 Pulse Ox 98 05/17/20 07:27 Weight - Most Recent: 60.237 kg I&O - Last 24 hours: Intake & Output 05/16/20 05/17/20 05/17/20 22:59 06:59 14:59 Intake Total 100 Output Total 750 Balance -650 Lab Results - Last 24 hrs: Laboratory Results - last 24 hr 05/17/20 Range/Units 06:23 Sodium 143 (136-145) mmol/L Potassium 3.8 (3.5-5.1) mmol/L Chloride 107 (98-107) mmol/L Carbon Dioxide 28 (21-32) mmol/L Anion Gap 11.8 (7-13) mEq/L BUN 15 (7-18) mg/dL Creatinine 0.90 (0.55-1.02) mg/dL Est Cr Clr Drug Dosing 35.81 mL/min Estimated GFR (MDRD) > 60 Glucose 88 (74-99) mg/dL Calcium 8.8 (8.5-10.1) mg/dL Med Orders - Current: Current Medications Acetaminophen (Tylenol) 650 mg PO Q4H PRN PRN Reason: Pain (Mild 1-3)/fever Aspirin (Halfprin) 81 mg PO BEDTIME [facility] Last Admin: 05/16/20 20:15 Dose: 81 mg Documented by: Heparin Sodium (Porcine) (Heparin Sodium) 5,000 units SUBCUT Q8HR [facility] Last Admin: 05/17/20 06:02 Dose: 5,000 units Documented by: Metoprolol Tartrate (Lopressor) 12.5 mg PO BID [facility] Last Admin: 05/17/20 09:02 Dose: 12.5 mg Documented by: Morphine Sulfate (Morphine) 2 mg IVPUSH Q2H PRN PRN Reason: Pain (severe 7-10) (Ticagrelor [ Brilinta] 90 Mg)*Pt Own Med* 90 mg PO BID [facility] Last Admin: 05/17/20 09:04 Dose: Not Given Documented by: Atorvastatin 40 Mg (Tab *Pt Own Med*) 0 each PO BEDTIME [facility] Last Admin: 05/16/20 20:15 Dose: 1 each Documented by: Fluoxetine 20 Mg Cap (*Pt Own Med*) 0 each PO DAILY [facility] Last Admin: 05/17/20 09:01 Dose: 1 each Documented by: Ondansetron HCl (Zofran) 4 mg IVPUSH Q6H PRN PRN Reason: Nausea/Vomiting Oxycodone/Acetaminophen (Percocet 325-5 Mg) 1 tab PO Q4H PRN PRN Reason: Pain (moderate 4-6) Last Admin: 05/16/20 20:16 Dose: 1 tab Documented by: Polyethylene Glycol (Miralax) 17 gm PO DAILY [facility] Last Admin: 05/17/20 09:03 Dose: Not Given Documented by: Discontinued Medications Atorvastatin Calcium (Lipitor) 40 mg PO BEDTIME [facility] Fluoxetine HCl (Prozac) 20 mg PO DAILY [facility] Last Admin: 05/15/20 09:35 Dose: 20 mg Documented by: Metoprolol Tartrate (Lopressor) 12.5 mg PO BID [facility] Last Admin: 05/15/20 09:35 Dose: 12.5 mg Documented by: - Exam General: Reports: Alert, Oriented, Cooperative HEENT: Reports: Pupils Equal, Pupils Reactive, EOMI, Mucous Membr. Moist/[place] Neck: Reports: Supple Lungs: Reports: Clear to Auscultation, Normal Respiratory Effort Cardiovascular: Reports: Regular Rate, Regular Rhythm GI/Abdominal Exam: Normal Bowel Sounds, Soft, Non-Tender, No Organomegaly, No Distention, No Abnormal Bruit, No Mass, Pelvis Stable Back Exam: Reports: Normal Inspection, Full Range of Motion Extremities: Normal Inspection, Normal Range of Motion, Non-Tender, No Pedal Edema, Normal Capillary Refill
== END 2020-05-17 11:00 | disposition home or self-care (01) | DRG 563 ==
LOC: DL.ED 22:14 → DL.MS 05-15 00:37 → OBSVTOIN 05-15 10:27
PROVIDERS: ADMIT Hospitalist; ATTEND Hospitalist
DX: S92.352A Displaced fracture of fifth metatarsal bone, left foot, initial encounter for closed fracture (principal); S63.502A Unspecified sprain of left wrist, initial encounter; E87.6 Hypokalemia; E78.5 Hyperlipidemia, unspecified; M25.532 Pain in left wrist; H54.7 Unspecified visual loss; M19.90 Unspecified osteoarthritis, unspecified site; K52.9 Noninfective gastroenteritis and colitis, unspecified; G89.29 Other chronic pain; F41.9 Anxiety disorder, unspecified; K21.9 Gastro-esophageal reflux disease without esophagitis; M54.9 Dorsalgia, unspecified; F32.9 Major depressive disorder, single episode, unspecified; G62.9 Polyneuropathy, unspecified; E66.9 Obesity, unspecified; I10 Essential (primary) hypertension; W19.XXXA Unspecified fall, initial encounter; D64.9 Anemia, unspecified; Z90.710 Acquired absence of both cervix and uterus; Z79.82 Long term (current) use of aspirin; Z95.5 Presence of coronary angioplasty implant and graft; Z91.048 Other nonmedicinal substance allergy status; Z98.49 Cataract extraction status, unspecified eye; Z90.49 Acquired absence of other specified parts of digestive tract; Z68.26 Body mass index [BMI] 26.0-26.9, adult; Z79.899 Other long term (current) drug therapy; Z88.0 Allergy status to penicillin
CPT/HCPCS: 36415; 72131; 72192; 73110; 73610; 80053; 80307; 81003; 85025; 99285; A9270 ×3; J1644; 80048; 97162-GP; 97165-GO

== ENCOUNTER 2020-07-29 06:24 | Day surgery (SDC) | payer MEDICARE, BC ==
[~2020-07-29 06:24] MED LIST changes: -Dextrose 5%-0.45% NaCl 1,000 ML IV SCH
[2020-07-29] MEDS ORDERED: Midazolam 1 MG/ML 2 ML SDV IV ONE ×2 (06:25→07:28)
[2020-07-29] MEDS ORDERED: fentaNYL 100 MCG/2 ML SDV IV ONE ×2 (06:25→07:27)
[2020-07-29] MEDS ORDERED: Dextrose 5%-0.45% NaCl 1,000 ML IV SCH (06:30)
[2020-07-29 09:37] VITALS: BP 117/51; PULSE 63
--- NOTE | 2020-07-29 13:25 | OR ---
DATE: 07/29/2020 PROCEDURE: Esophagogastroduodenoscopy and multiple pinch biopsies. INSTRUMENT USED: [id number]-HQ190 Olympus video panendoscope. PREMEDICATIONS: No oral or topical anesthesia used. Fentanyl 50 mcg intravenous, Versed 1 mg intravenous. Nasal O2 cannula. The procedure was done under pulse oximetry, BP recording, and pain management nurse practitioner. INDICATION: The patient with persistent heartburn unexplained, on high-dose PPI. Esophagogastroduodenoscopy is performed for detection of any active erosive lesions, [place] esophagus and/or malignancy also under consideration, H. Pylori status to be determined, endoscopic hemostasis therapy if needed. DESCRIPTION OF PROCEDURE: The scope was passed with ease. Adequate visualization of the esophagus was made from proximal to distal areas. No upper esophageal lesions identified. No distal esophageal stricture. No uphill or downhill esophageal varices. No Ebony-Kaufman tear. No evidence of erosive esophagitis by [place] criteria. Non-constricting Schatzki's ring was noted. [place] columnar epithelium was noted at around 35 cm distal to the oral verge, four-quadrant biopsies were taken from the Z-line and sent for any histopathologic evidence of intestinal metaplasia. No esophageal polyp or tumor mass identified. Gastric fundus examination by retroflexion showed no polypoid lesions. No proximal gastric varices noted. No gastric ulcer, malignant mass, or vascular ectasia identified. Duodenal bulb showed no ulcer. Visualized second part of the duodenum was unremarkable. Multiple pinch biopsies were taken from the gastric antrum and proximal body and sent for PyloriTek test for H. pylori and histopathology. No bleeding was noted from any of the visualized areas at the completion of examination. Photographs were taken of the duodenal bulb, gastric antrum, fundus, and distal esophagus. IMPRESSION: 1. Non-constricting Schatzki's ring. 2. Columnar-lined distal esophagus. [facility] /[id number]
--- NOTE | 2020-07-29 15:33 | LETTER ---
07/29/2020 RE: ZEYNEP CARRERA : 1940 Sherron Balderrama MD [facility] [address] [place] [address], [id number] Balderrama: Ms. Zeynep Carrera had an esophagogastroduodenoscopy done this morning, and she tolerated the procedure well. I hereby send a copy of the endoscopy note and photographs for your review. Thank you. Sincerely, [facility] /[id number]
== END 2020-07-29 09:45 | disposition home or self-care (01) ==
LOC: DL.ENDO 06:24
PROVIDERS: ATTEND Internal Medicine Gastroenterology
DX: K22.2 Esophageal obstruction (principal); K29.50 Unspecified chronic gastritis without bleeding; K22.8 Other specified diseases of esophagus; Z95.5 Presence of coronary angioplasty implant and graft; I25.10 Atherosclerotic heart disease of native coronary artery without angina pectoris; F41.1 Generalized anxiety disorder; M19.90 Unspecified osteoarthritis, unspecified site; F32.9 Major depressive disorder, single episode, unspecified; K21.9 Gastro-esophageal reflux disease without esophagitis; K58.9 Irritable bowel syndrome, unspecified; Z98.49 Cataract extraction status, unspecified eye; Z90.710 Acquired absence of both cervix and uterus; Z92.3 Personal history of irradiation; Z90.49 Acquired absence of other specified parts of digestive tract; Z98.890 Other specified postprocedural states; Z88.0 Allergy status to penicillin
CPT/HCPCS: 43239; 87077; J2250; J3010; J7042

== ENCOUNTER 2022-05-27 13:13 | Emergency (ER) | payer MEDICARE, BC ==
[2022-05-27 14:21] VITALS: BP 160/78; PULSE 67
== END 2022-05-27 14:30 | disposition left against medical advice (07) ==
LOC: DL.ED 13:13
DX: M54.2 Cervicalgia (principal); Z53.21 Procedure and treatment not carried out due to patient leaving prior to being seen by health care provider

== ENCOUNTER 2022-10-05 05:14 | Day surgery (SDC) | payer MEDICARE, BC ==
[2022-10-05] MEDS ORDERED: Midazolam 1 MG/ML 2 ML SDV IV ONE ×3 (05:15→06:30)
[2022-10-05] MEDS ORDERED: fentaNYL 100 MCG/2 ML SDV IV ONE ×3 (05:15→06:28)
[2022-10-05] MEDS ORDERED: Dextrose 5%-0.45% NaCl 1,000 ML IV SCH (06:00)
[2022-10-05] MEDS ORDERED: fentaNYL 100 MCG/2 ML SDV ONE (06:20)
[2022-10-05] MEDS ORDERED: Midazolam 1 MG/ML 2 ML SDV ONE (06:20)
[2022-10-05 11:53] VITALS: PULSE 66
[2022-10-05 12:39] VITALS: BP 183/136
== END 2022-10-05 08:52 | disposition home or self-care (01) ==
LOC: DL.ENDO 05:14
PROVIDERS: ATTEND Internal Medicine Gastroenterology
DX: K29.50 Unspecified chronic gastritis without bleeding (principal); K31.A0 Gastric intestinal metaplasia, unspecified; F32.A Depression, unspecified; K21.9 Gastro-esophageal reflux disease without esophagitis; K58.9 Irritable bowel syndrome, unspecified; I25.10 Atherosclerotic heart disease of native coronary artery without angina pectoris; Z88.0 Allergy status to penicillin; Z98.890 Other specified postprocedural states; Z90.49 Acquired absence of other specified parts of digestive tract; Z90.710 Acquired absence of both cervix and uterus
CPT/HCPCS: 43239; 87077; J2250; J3010; J7042; 88305; 88342

== ENCOUNTER 2022-10-10 06:14 | Day surgery (SDC) | payer MEDICARE, BC ==
[2022-10-10] MEDS ORDERED: Midazolam 1 MG/ML 2 ML SDV IV ONE (06:15)
[2022-10-10] MEDS ORDERED: fentaNYL 100 MCG/2 ML SDV IV ONE (06:15)
[2022-10-10] MEDS ORDERED: Midazolam 1 MG/ML 2 ML SDV ONE (06:22)
[2022-10-10] MEDS ORDERED: fentaNYL 100 MCG/2 ML SDV ONE (06:23)
[2022-10-10] MEDS: Dextrose 5%-0.45% NaCl 1,000 ML IV SCH (06:50)
[2022-10-10] MEDS ORDERED: Sodium Chloride 0.9% 10 ML Syringe FLUSH PRN (07:00)
[2022-10-10] MEDS: fentaNYL 100 MCG/2 ML SDV IV ONE ×2 (07:32→07:33)
[2022-10-10] MEDS: Midazolam 1 MG/ML 2 ML SDV IV ONE ×4 (07:34→07:41)
[2022-10-10 08:49] VITALS: PULSE 76
[2022-10-10 08:51] VITALS: BP 118/64
[2022-10-10] MEDS ORDERED: Sodium Chloride 0.9% 10 ML Syringe FLUSH SCH (09:00)
== END 2022-10-10 09:30 | disposition home or self-care (01) ==
LOC: DL.ENDO 06:14
PROVIDERS: ATTEND Internal Medicine Gastroenterology
DX: K52.9 Noninfective gastroenteritis and colitis, unspecified (principal); K21.9 Gastro-esophageal reflux disease without esophagitis; F32.A Depression, unspecified; Z88.0 Allergy status to penicillin; Z90.49 Acquired absence of other specified parts of digestive tract; Z98.890 Other specified postprocedural states; Z90.710 Acquired absence of both cervix and uterus
CPT/HCPCS: J2250; J3010; J7042